=== PATIENT | female | born 1985 | race American Indian/Alaskan Native ===

== ENCOUNTER 2016-10-13 09:03 | Outpatient (CLI) | payer BC, OTHER ==
[2016-10-13] MEDS ORDERED: LACTATED RINGERS 500 ML IV ONE (10:30)
[2016-10-13] MEDS ORDERED: IMODIUM A-D PO PRN (11:08)
[2016-10-13] MEDS ORDERED: ZOFRAN IV ONE (11:08)
[2016-10-13 11:49] LABS: Bilirubin,Urine NEG (Negative); Blood,Urine NEG (Negative); Ketones,Urine 20 mg/dL (Negative); Leukocyte Esterase,Urine NEG (Negative); Nitrite,Urine NEG (Negative); Urobilinogen,Urine < 2.0 mg/dL (<2.0)
[2016-10-13 12:32] VITALS: BP 110/61
== END 2016-10-13 14:49 | disposition home or self-care (01) ==
LOC: TRG 09:03
PROVIDERS: ATTEND Obstetrics & Gynecology
DX: O47.03 False labor before 37 completed weeks of gestation, third trimester (principal); Z3A.29 29 weeks gestation of pregnancy
CPT/HCPCS: 59025; 81001; 96360; 96361; J2405; J7120

== ENCOUNTER 2016-11-27 15:09 | Outpatient (CLI) | payer BC, MEDICAID ==
[2016-11-27] MEDS ORDERED: LACTATED RINGERS 500 ML IV ONE (16:00)
[2016-11-27 17:44] LABS: Hematocrit 31.7 % (30.3-42.9); Hemoglobin 9.9 gm/dl (10.1-14.3); Mean Corpuscular HGB Conc 31 % (30-34); Mean Corpuscular Volume 76 fl (79-97); Platelet Count 242 K/mm3 (140-440); Red Blood Count 4.16 M/mm3 (3.65-5.03); Red Cell Distribution Width 14.5 % (13.2-15.2); White Blood Count 5.4 K/mm3 (4.5-11.0)
[2016-11-27 17:45] LABS: Mean Corpuscular Hemoglobin 24 pg (28-32)
[2016-11-27 17:49] LABS: Alanine Aminotransferase 11 units/L (7-56); Lactate Dehydrogenase 147 units/L (91-180); Uric Acid 4.9 mg/dL (3.5-7.6)
[2016-11-27 20:17] LABS: Bacteria,Urine 1+ /HPF (Negative); Bilirubin,Urine NEG (Negative); Blood,Urine NEG (Negative); Ketones,Urine NEG (Negative); Leukocyte Esterase,Urine NEG (Negative); Mucus,Urine FEW /HPF; Nitrite,Urine NEG (Negative)
[2016-11-29 08:52] VITALS: BP 131/77
== END 2016-11-27 23:00 | disposition home or self-care (01) ==
LOC: TRG 15:09 → LD 15:24 → TRG 23:00
PROVIDERS: ATTEND Obstetrics & Gynecology
DX: O47.03 False labor before 37 completed weeks of gestation, third trimester (principal); Z3A.36 36 weeks gestation of pregnancy
CPT/HCPCS: 36415; 81001; 82565; 83615; 84450; 84460; 84550; 85027

== ENCOUNTER 2018-05-14 10:26 | Emergency (ER) | payer BC, MEDICAID ==
[2018-05-14] MEDS ORDERED: TORADOL IM ONE (10:51)
[2018-05-14] MEDS ORDERED: TYLENOL PO ONE (10:51)
--- NOTE | 2018-05-14 10:55 | Emergency Department Report ---
- General Chief Complaint: Upper Respiratory Infection Stated Complaint: FLU LIKE SYM Time Seen by Provider: 05/14/18 10:43 Source: patient Mode of arrival: Ambulatory Limitations: No Limitations - History of Present Illness Initial Comments: 33 year old female with no significant past medical history this is a hospital with cough and cold symptoms since yesterday. She complains of runny nose, sneezing, frontal headache, generalized body aches, nonproductive cough. Presents with a fever 100.2. No known sick contacts but her son also has a runny nose. She denies recent travel, nausea, vomiting, diarrhea, sore throat, did not receive a flu shot this year. - Related Data Home Medications Medication Instructions Recorded Confirmed Last Taken Pnv,Calcium 72/Iron/Folic Acid 1 tab PO DAILY 11/29/16 11/29/16 1 Day Ago [Pnv Plus Multivit Tab] ~11/28/16 Previous Rx's Medication Instructions Recorded Last Taken Type Ibuprofen [Motrin] 800 mg PO Q8HR PRN #60 tablet 12/02/16 Unknown Rx Labetalol [Normodyne TAB] 200 mg PO BID #60 tablet 12/02/16 Unknown Rx oxyCODONE /ACETAMINOPHEN [Percocet 1 tab PO Q6HR PRN #45 tablet 12/02/16 Unknown Rx 5/325] Ibuprofen [Motrin] 800 mg PO Q8HR PRN #30 tablet 05/14/18 Unknown Rx Oseltamivir [Tamiflu] 75 mg PO BID #10 cap 05/14/18 Unknown Rx Pseudoephedrine (Nf) [Sudafed (Nf)] 60 mg PO BID PRN #20 tab 05/14/18 Unknown Rx guaiFENesin/DEXTROMETHORPHAN 1 tab PO BID PRN #20 tab 05/14/18 Unknown Rx [Mucinex DM ER 600-30 mg TAB] Allergies Allergy/AdvReac Type Severity Reaction Status Date / Time No Known Allergies Allergy Verified 05/14/18 10:27 ED Review of Systems ROS: Stated complaint: FLU LIKE SYM Other details as noted in HPI Comment: All other systems reviewed and negative ED Past Medical Hx - Past Medical History Hx Hypertension: No Hx Congestive Heart Failure: No Hx Diabetes: No Hx Deep Vein Thrombosis: No Hx Renal Disease: No Hx Sickle Cell Disease: No Hx Seizures: No Hx Asthma: No Hx COPD: No Hx HIV: No - Social History Smoking Status: Never Smoker - Medications Home Medications: Home Medications Medication Instructions Recorded Confirmed Last Taken Type Pnv,Calcium 72/Iron/Folic Acid 1 tab PO DAILY 11/29/16 11/29/16 1 Day Ago History [Pnv Plus Multivit Tab] ~11/28/16 Ibuprofen [Motrin] 800 mg PO Q8HR PRN #60 tablet 12/02/16 Unknown Rx Labetalol [Normodyne TAB] 200 mg PO BID #60 tablet 12/02/16 Unknown Rx oxyCODONE /ACETAMINOPHEN [Percocet 1 tab PO Q6HR PRN #45 tablet 12/02/16 Unknown Rx 5/325] Ibuprofen [Motrin] 800 mg PO Q8HR PRN #30 tablet 05/14/18 Unknown Rx Oseltamivir [Tamiflu] 75 mg PO BID #10 cap 05/14/18 Unknown Rx Pseudoephedrine (Nf) [Sudafed (Nf)] 60 mg PO BID PRN #20 tab 05/14/18 Unknown Rx guaiFENesin/DEXTROMETHORPHAN 1 tab PO BID PRN #20 tab 05/14/18 Unknown Rx [Mucinex DM ER 600-30 mg TAB] ED Physical Exam - General Limitations: No Limitations - Other Other exam information: General: No limitations, patient is alert in no acute distress Head exam: Atraumatic, normocephalic Eyes exam: Normal appearance, pupils equal reactive to light, extraocular movements intact ENT: Moist mucous membrane, normal oropharynx without exudates. No sinus tenderness on exam. Positive nasal congestion Neck exam: Normal inspection, full range of motion, no meningismus nontender Respiratory exam: Clear to auscultation bilateral, no wheezes, rales, crackles Cardiovascular: Normal rate and rhythm, normal heart sounds Abdomen: Soft, nondistended, and nontender, with normal bowel sounds, no rebound, or guarding Extremity: Full range of motion normal inspection no deformity Back: Normal Inspection, full range of motion, no tenderness Neurologic: Alert, oriented x3, cranial nerves intact, no motor or sensory deficit Psychiatric: normal affect, normal mood Skin: Warm, dry, intact ED Course Vital Signs 05/14/18 10:30 Temperature 100.2 F H Pulse Rate 103 H Respiratory 16 Rate Blood Pressure 142/70 O2 Sat by Pulse 98 Oximetry ED Medical Decision Making - Lab Data Lab Results 05/14/18 Range/Units 11:18 Influenza A (Rapid) Positive A (Negative) Influenza B (Rapid) Negative (Negative) - Medical Decision Making Patient test positive for flu. Will be prescribed Tamiflu and treated symptomatically. - Differential Diagnosis URI, bronchitis, influenza, viral syndrome, pneumonia Critical Care Time: No Critical care attestation.: If time is entered above; I have spent that time in minutes in the direct care of this critically ill patient, excluding procedure time. ED Disposition Clinical Impression: Influenza A Disposition: - TO HOME OR SELFCARE Is pt being admited?: No Does the pt Need Aspirin: No Condition: Stable Instructions: Influenza (ED) Additional Instructions: You may take Tylenol or Motrin as needed for pain and fever. Take the medication as prescribed. Follow up with your doctor or the clinic/doctor provided. Return if symptoms worsen as indicated by your discharge instructions Prescriptions: guaiFENesin/DEXTROMETHORPHAN [Mucinex DM ER 600-30 mg TAB] 1 tab PO BID PRN #20 tab PRN Reason: Cough Ibuprofen [Motrin] 800 mg PO Q8HR PRN #30 tablet PRN Reason: Pain , Severe (7-10) Oseltamivir [Tamiflu] 75 mg PO BID #10 cap Pseudoephedrine (Nf) [Sudafed (Nf)] 60 mg PO BID PRN #20 tab PRN Reason: Nasal Congestion Referrals: DANIELLE ESPINO MD [Primary Care Provider] - 3-5 Days [facility] [Provider Group] - 3-5 Days AMADOR KELLY MD [Staff Physician] - 3-5 Days Forms: Work/School Release Form(ED) Time of Disposition: 12:09
[2018-05-14 12:36] VITALS: BP 119/76
== END 2018-05-14 12:28 | disposition home or self-care (01) ==
LOC: ED 10:26
DX: J11.1 Influenza due to unidentified influenza virus with other respiratory manifestations (principal)
CPT/HCPCS: 87400; 96372; 99283; J1885

== ENCOUNTER 2020-10-13 11:11 | Emergency (ER) | payer SELFPAY ==
--- NOTE | 2020-10-13 11:46 | Emergency Department Report ---
Chief Complaint: Upper Respiratory Infection Stated Complaint: SORE THROAT / COUGHING UP YELLOW MUCUS Time Seen by Provider: 10/13/20 11:38 - HPI History of Present Illness: Chief complaint: Sore throat HPI: This is a healthy 35-year-old female presents with sore throat cough for several days. Young son with similar symptoms. Physical exam: Patient appears well: Oropharynx: No tonsillar erythema no tonsillar enlargement no exudates Clear breath sounds MDM: Viral URI, recommended COVID-19 testing if symptoms progress MSE screening note: Focused history and physical exam performed. Due to findings the following was ordered: ED Disposition for MSE Clinical Impression: URI (upper respiratory infection) Disposition: Z- MED SCREENING EXAM-LEFT Is pt being admited?: No Does the pt Need Aspirin: No Condition: Stable Instructions: Viral Respiratory Infection, [id number] Referrals: AUGUSTINE OTT MD [Staff Physician] - as needed
[2020-10-13 11:49] VITALS: BP 160/101
== END 2020-10-13 12:00 | disposition home or self-care (01) ==
LOC: ED 11:11
DX: J06.9 Acute upper respiratory infection, unspecified (principal); Z53.21 Procedure and treatment not carried out due to patient leaving prior to being seen by health care provider

== ENCOUNTER 2021-03-20 19:45 | Emergency (ER) | payer SELFPAY ==
[2021-03-21] MEDS ORDERED: HYDROcodone/ACETAMINOPHEN 5-325 MG TAB PO STA (07:01)
[2021-03-21] MEDS ORDERED: ONDANSETRON 4 MG ODT TAB PO STA (07:01)
[2021-03-21] MEDS ORDERED: KETOROLAC 30 MG/1 ML INJ IV STA (07:02)
[2021-03-21] MEDS ORDERED: ONDANSETRON 4 MG/2 ML INJ IV STA (07:02)
[2021-03-21] MEDS ORDERED: SODIUM CHLORIDE 0.9% 1000 ML 1,000 ML IV ONE (07:02)
--- NOTE | 2021-03-21 07:08 | Emergency Department Report ---
- General Chief Complaint: Headache Stated Complaint: HEADACHE/CHILLS Time Seen by Provider: 03/21/21 05:39 Source: patient Mode of arrival: Ambulatory Limitations: No Limitations - History of Present Illness MD Complaint: sore throat, rhinorrhea, nasal congestion -: Gradual Severity: mild Quality: dull Consistency: constant Context: sick contacts (Was with a group and the entire group has tested positive for coronavirus she is the only 1 who has not yet been tested) Associated Symptoms: fever, chills, myalgias, headache, rhinorrhea, nasal congestion, cough, nausea, vomiting, diarrhea Treatments Prior to Arrival: none - Related Data Home Medications Medication Instructions Recorded Confirmed Last Taken Pnv,Calcium 72/Iron/Folic Acid 1 tab PO DAILY 11/29/16 11/29/16 1 Day Ago [Pnv Plus Multivit Tab] ~11/28/16 Previous Rx's Medication Instructions Recorded Last Taken Type Ibuprofen [Motrin] 800 mg PO Q8HR PRN #60 tablet 12/02/16 Unknown Rx labetaloL [Labetalol 200mg TAB] 200 mg PO BID #60 tablet 12/02/16 Unknown Rx oxyCODONE /ACETAMINOPHEN [Percocet 1 tab PO Q6HR PRN #45 tablet 12/02/16 Unknown Rx 5/325] Ibuprofen [Motrin] 800 mg PO Q8HR PRN #30 tablet 05/14/18 Unknown Rx Oseltamivir [Tamiflu] 75 mg PO BID #10 cap 05/14/18 Unknown Rx Pseudoephedrine (Nf) [Sudafed (Nf)] 60 mg PO BID PRN #20 tab 05/14/18 Unknown Rx guaiFENesin/DEXTROMETHORPHAN 1 tab PO BID PRN #20 tab 05/14/18 Unknown Rx [Mucinex DM ER 600-30 mg TAB] Albuterol Mdi (or & Nicu Only) 2 puff IH QID PRN #8.5 gram 10/27/19 Unknown Rx [ProAir HFA Inhaler] predniSONE [Deltasone] 20 mg PO QDAY #5 tab 10/27/19 Unknown Rx Albuterol Mdi (or & Nicu Only) 2 puff IH QID PRN #1 inhalation 03/21/21 Unknown Rx [ProAir HFA Inhaler] Azithromycin [Zithromax] 500 mg PO QDAY #3 tablet 03/21/21 Unknown Rx Benzonatate [Tessalon Perles] 100 mg PO Q8HR #20 capsule 03/21/21 Unknown Rx predniSONE [Deltasone] 20 mg PO QDAY #5 tab 03/21/21 Unknown Rx Allergies Allergy/AdvReac Type Severity Reaction Status Date / Time No Known Allergies Allergy Verified 03/20/21 21:42 ED Review of Systems ROS: Stated complaint: HEADACHE/CHILLS Other details as noted in HPI Comment: All other systems reviewed and negative Eyes: denies: as per HPI ED Past Medical Hx - Past Medical History Hx Hypertension: No Hx Congestive Heart Failure: No Hx Diabetes: No Hx Deep Vein Thrombosis: No Hx Renal Disease: No Hx Sickle Cell Disease: No Hx Seizures: No Hx Asthma: No Hx COPD: No Hx HIV: No - Social History Smoking Status: Never Smoker Substance Use Type: None - Medications Home Medications: Home Medications Medication Instructions Recorded Confirmed Last Taken Type Pnv,Calcium 72/Iron/Folic Acid 1 tab PO DAILY 11/29/16 11/29/16 1 Day Ago History [Pnv Plus Multivit Tab] ~11/28/16 Ibuprofen [Motrin] 800 mg PO Q8HR PRN #60 tablet 12/02/16 Unknown Rx labetaloL [Labetalol 200mg TAB] 200 mg PO BID #60 tablet 12/02/16 Unknown Rx oxyCODONE /ACETAMINOPHEN [Percocet 1 tab PO Q6HR PRN #45 tablet 12/02/16 Unknown Rx 5/325] Ibuprofen [Motrin] 800 mg PO Q8HR PRN #30 tablet 05/14/18 Unknown Rx Oseltamivir [Tamiflu] 75 mg PO BID #10 cap 05/14/18 Unknown Rx Pseudoephedrine (Nf) [Sudafed (Nf)] 60 mg PO BID PRN #20 tab 05/14/18 Unknown Rx guaiFENesin/DEXTROMETHORPHAN 1 tab PO BID PRN #20 tab 05/14/18 Unknown Rx [Mucinex DM ER 600-30 mg TAB] Albuterol Mdi (or & Nicu Only) 2 puff IH QID PRN #8.5 gram 10/27/19 Unknown Rx [ProAir HFA Inhaler] predniSONE [Deltasone] 20 mg PO QDAY #5 tab 10/27/19 Unknown Rx Albuterol Mdi (or & Nicu Only) 2 puff IH QID PRN #1 inhalation 03/21/21 Unknown Rx [ProAir HFA Inhaler] Azithromycin [Zithromax] 500 mg PO QDAY #3 tablet 03/21/21 Unknown Rx Benzonatate [Tessalon Perles] 100 mg PO Q8HR #20 capsule 03/21/21 Unknown Rx predniSONE [Deltasone] 20 mg PO QDAY #5 tab 03/21/21 Unknown Rx ED Physical Exam - General Limitations: No Limitations General appearance: alert, in no apparent distress, other (Ill but nontoxic) - Head Head exam: Present: atraumatic, normocephalic - Eye Eye exam: Present: normal appearance - ENT ENT exam: Present: mucous membranes moist - Neck Neck exam: Present: normal inspection - Respiratory Respiratory exam: Present: normal lung sounds bilaterally, rhonchi (Scant rhonchi no wheezing appreciated). Absent: respiratory distress, accessory muscle use, decreased breath sounds, prolonged expiratory - Cardiovascular Cardiovascular Exam: Present: regular rate, normal rhythm. Absent: systolic murmur, diastolic murmur, rubs, gallop - GI/Abdominal GI/Abdominal exam: Present: soft, normal bowel sounds. Absent: tenderness, guarding, rebound, hypoactive bowel sounds, organomegaly, mass - Extremities Exam Extremities exam: Present: normal inspection, full ROM, normal capillary refill. Absent: tenderness, pedal edema, joint swelling - Back Exam Back exam: Present: normal inspection. Absent: CVA tenderness (R), CVA tenderness (L) - Neurological Exam Neurological exam: Present: alert, oriented X3, CN II-XII intact, normal gait - Psychiatric Psychiatric exam: Present: normal affect, normal mood. Absent: anxious, flat affect - Skin Skin exam: Present: warm, dry, intact, normal color. Absent: rash ED Course Vital Signs 03/20/21 03/21/21 21:42 06:48 Temperature 100.9 F H 101.3 F H Pulse Rate 96 H 86 Respiratory 18 17 Rate Blood Pressure 130/73 123/78 O2 Sat by Pulse 98 99 Oximetry ED Medical Decision Making - Medical Decision Making This 36-year-old patient patient presents to the emergency department with fever and lower respiratory symptoms concerning for viral syndrome including flu and COVID-19. Patient has suspicion and is for COVID-19 infection. Differential diagnosis includes other viral causes of lower respiratory symptoms, pneumonia, asthma, bronchitis. Patient is well-appearing with acceptable vitals, lacks comorbidities admission and a reassuring physical examination and is safe to be discharged home nasal swab for COVID testing is recommended. Provide strict return precautions and instructions on self isolation/quarantine and antici patory guidance. Emergency department she was started on repeat vitals with indicated a worsening fever she was then provided with 1 L of normal saline in conjunction with antipyretics, anti-nausea medication, and analgesic medication as well which did overall help her symptoms and her fever. Critical care attestation.: If time is entered above; I have spent that time in minutes in the direct care of this critically ill patient, excluding procedure time. ED Disposition Clinical Impression: URI (upper respiratory infection), Fever, Viral syndrome, Exposure to COVID-19 virus Disposition: HOME / SELF CARE / HOMELESS Is pt being admited?: No Does the pt Need Aspirin: No Condition: Stable Instructions: Cool Mist Vaporizer, COVID-19 Frequently Asked Questions, COVID- 19, Viral Respiratory Infection, [id number], COVID-19: How to Protect Yourself and Others - CDC, Viral Respiratory Infection Test, Infection Prevention in the Home, Cough, Adult, Hand Washing Additional Instructions: You were evaluated emergency department today for cough and coryza very likely secondary to the coronavirus. You have been able to ambulate and maintain a normal saturation and your evaluation shows no indications of any hypoxemic cardiopulmonary process in your symptoms are most likely due to a viral illness which will improve on its own with rest and fluids. You can take over-the- counter medications such as various [id number] cough medications and also some decongestions to help diurese your symptoms. Please schedule an appointment to follow-up with your primary care physician within 2 days Return to emergency department if you expands worsening cough, fever 101 100.4 or greater, recurrent vomiting, chest pain, shortness of breath or other concerning problems Prescriptions: predniSONE [Deltasone] 20 mg PO QDAY #5 tab Albuterol Mdi (or & Nicu Only) [ProAir HFA Inhaler] 2 puff IH QID PRN #1 inhalation PRN Reason: Shortness Of Breath Benzonatate [Tessalon Perles] 100 mg PO Q8HR #20 capsule Azithromycin [Zithromax] 500 mg PO QDAY #3 tablet Referrals: PRIMARY CARE, [Primary Care Provider] - 3-5 Days [facility] [Provider Group] - 3-5 Days
[2021-03-21 10:26] VITALS: BP 128/66
== END 2021-03-21 10:26 | disposition home or self-care (01) ==
LOC: ED 19:45
DX: J06.9 Acute upper respiratory infection, unspecified (principal); B34.9 Viral infection, unspecified; Z20.822 Contact with and (suspected) exposure to COVID-19
CPT/HCPCS: 96361; 96374; 96375; 99282; J1885; J2405; J7030; Q0162